=== PATIENT | female | born 1955 | race Caucasian/White ===

== ENCOUNTER → 2016-08-24 | Outpatient (CLI) | payer BC ==
--- NOTE | 2016-08-24 17:22 | US ---
Limited Abdominal Ultrasound INDICATION: Right upper quadrant abdominal swelling and lump. TECHNIQUE: Limited right upper quadrant ultrasound is performed. COMPARISON: August 26, 2015. Patient is status post hemangioma embolization January 2013. Up until last year's ultrasound, patient has had continued decrease in volume of the embolized hemangioma at the l eft hepatic lobe. FINDINGS: Pancreas is normal. Aorta maximally measures 2.1 cm, and is without plaque. Liver measures 15.8 cm. The left lobe exophytic hemangioma measures 3.5 x 3.2 x 1.3 cm today, which i s equivalent to 14.5 mL. Previous measurement is 3.8 x 3.5 x 2.4 cm, which is equivalent to 32 mL. Th erefore, there is continued shrinkage of this hemangioma, amazingly, 3 1/2 years post embolization. T his lesion originally had a volume of 222 mL. The hemangioma to the right hepatic lobe currently measures 2.2 x 2.1 x 2.1 cm. This is equivalent to 9.7 mL. This lesion was previously ill-defined, measuring up to 2.5 cm. No new hemangiomas. Liver echotexture is otherwise normal. Gallbladder is within normal limits. Gallbladder wall measures 1.5 mm. Common duct measures 5 mm. A s onographic Ignacio sign is negative. Right kidney measures 11.1 x 5.2 x 5.2 cm. Inferior pole cyst at 2.5 x 2 x 1.5 cm is unchanged. Sanchez x is normal. No ascites or effusion. IMPRESSION: 1. Continued decrease in overall volume of the exophytic left hepatic lobe hemangioma. Total shrinkag e since preembolization volume is 93% at this point. 2. Probably stable to slightly decreased right hepatic lobe hemangioma.
== END ==
LOC: FIMAGING 09:31
PROVIDERS: ATTEND Surgery
DX: D18.03 Hemangioma of intra-abdominal structures (principal)

== ENCOUNTER → 2017-03-08 | Outpatient (CLI) | payer BC | LOC: FIMAGING 13:42 | PROVIDERS: ATTEND Surgery | DX: D18.03 Hemangioma of intra-abdominal structures (principal) ==

== ENCOUNTER → 2017-06-19 | Outpatient (CLI) | payer BC | LOC: FIMAGING 08:49 | PROVIDERS: ATTEND Internal Medicine | DX: Z12.31 Encounter for screening mammogram for malignant neoplasm of breast (principal) | CPT/HCPCS: G0202 ==

== ENCOUNTER → 2018-03-26 | Outpatient (CLI) | payer BC | LOC: FIMAGING 10:07 | PROVIDERS: ATTEND Internal Medicine | DX: Z12.2 Encounter for screening for malignant neoplasm of respiratory organs (principal); D18.03 Hemangioma of intra-abdominal structures; Z87.891 Personal history of nicotine dependence ==

== ENCOUNTER → 2018-07-04 | Outpatient (CLI) | payer BC | LOC: FIMAGING 13:42 | PROVIDERS: ATTEND Internal Medicine | DX: R92.8 Other abnormal and inconclusive findings on diagnostic imaging of breast (principal) ==

== ENCOUNTER → 2018-10-03 | Outpatient (CLI) | payer BC | LOC: BMCIMAGING 10:21 ==